=== PATIENT | male | born 1950 | race Hispanic/Latino ===

== ENCOUNTER 2021-01-21 15:06 | Inpatient (IN) | payer MEDICARE ==
[~2021-01-21] VITALS: Ht 175.3 cm; Wt 67.2 kg
[2021-01-21] MEDS ORDERED: ONDANSETRON HCL INJ 2MG/ML 2ML 2 MG/ML VIAL IV NR (15:31)
[2021-01-21] MEDS ORDERED: PANTOPRAZOLE 40 MG 10ML VIAL IV NR (15:45)
[2021-01-21] MEDS ORDERED: SODIUM CHLORIDE 0.9% 500ML 500 ML IV ONE (15:45)
[2021-01-21 16:04] LABS: BASOPHILS % 0.3 % (0.0-1.0); EOSINOPHILS # (AUTO) 0.1 (0.0-0.4); HEMATOCRIT 42.3 % (38.2-49.6); HEMOGLOBIN 14.7 g/dL (14.0-18.0); LYMPHOCYTES # (AUTO) 1.2 (1.0-3.2); LYMPHOCYTES % 20.1 % (18.0-39.1); MEAN CORPUSCULAR HEMOGLOBIN 31.1 pg (28-32); MEAN CORPUSCULAR HGB CONC 34.8 g/dL (31-35); MEAN CORPUSCULAR VOLUME 89.6 fL (81-99); MONOCYTES # (AUTO) 0.5 (0.2-0.8); MONOCYTES % 8.6 % (4.4-11.3); NEUTROPHILS # (AUTO) 4.2 (2.1-6.9); NEUTROPHILS % 69.7 % (38.7-80.0); PLATELET COUNT 183 x10e3/uL (140-360); RED BLOOD COUNT 4.72 x10e6/uL (4.3-5.7); RED CELL DISTRIBUTION WIDTH 12.4 % (11.7-14.4)
[2021-01-21 16:12] LABS: INR 0.97; PROTHROMBIN TIME 13.5 seconds (11.9-14.5)
[2021-01-21 16:13] LABS: PARTIAL THROMBOPLASTIN TIME 35.8 seconds (23.8-35.5)
[2021-01-21 16:25] LABS: ALANINE AMINOTRANSFERASE 25 IU/L (0-55); ALBUMIN 4.1 g/dL (3.5-5.0); ALBUMIN/GLOBULIN RATIO 1.2 (0.8-2.0); ALKALINE PHOSPHATASE 56 IU/L (40-150); ANION GAP 16.2 mmol/L (8-16); BLOOD UREA NITROGEN 15 mg/dL (7-26); BUN/CREATININE RATIO 15 (6-25); CALCIUM 9.2 mg/dL (8.4-10.2); CARBON DIOXIDE 26 mmol/L (22-29); CHLORIDE 100 mmol/L (98-107); CREATINE KINASE 25 IU/L (30-200); CREATININE, SERUM 1.02 mg/dL (0.72-1.25); EST GLOMERULAR FILTRATION RATE > 60 ML/MIN (60-); GLUCOSE 144 mg/dL (74-118); LIPASE 31 U/L (8-78); MAGNESIUM 1.5 MG/DL (1.3-2.1); POTASSIUM 3.2 mmol/L (3.5-5.1); SODIUM 139 mmol/L (136-145)
[2021-01-21] MEDS ORDERED: POTASSIUM CHLORIDE 20 MEQ TAB CR PO NR (17:15)
[2021-01-21 17:18] LABS: B-TYPE NATRIURETIC PEPTIDE2 40.2 pg/mL (0-100)
[2021-01-21 18:26] LABS: CLARITY,URINE CLEAR (CLEAR); COLOR,URINE YELLOW (YELLOW)
[2021-01-21 18:27] LABS: BACTERIA,URINE FEW /HPF; EPITHELIAL CELLS,URINE RARE /LPF; KETONES,URINE TRACE (NEGATIVE); LEUKOCYTE ESTERASE ,URINE NEGATIVE (NEGATIVE); NITRITE,URINE NEGATIVE (NEGATIVE); PROTEIN,URINE DIPSTICK NEGATIVE (NEGATIVE); RBC,URINE 0-5 /HPF (0-5); URINE UROBILINOGEN 0.2 mg/dL (0.2 - 1); WBC,URINE (MAN) 0-5 /HPF (0-5)
[2021-01-21] MEDS ORDERED: KCL 20MEQ/.9 SOD CHL 1,000 ML IV ONE ×2 (18:45→23:05)
[2021-01-21] MEDS ORDERED: ONDANSETRON HCL INJ 2MG/ML 2ML 2 MG/ML VIAL IV PRN (18:45)
[2021-01-21] MEDS ORDERED: IOPAMIDOL 370 MG/ML 200 ML INFUS..BTL INJ ONE (19:06)
[2021-01-21] MEDS ORDERED: SODIUM CHLORIDE 0.9% 100 ML ONE (19:06)
[2021-01-21] MEDS: ATORVASTATIN 20 MG TAB PO SCH (22:50)
[2021-01-21] MEDS: ASPIRIN 81 MG ENTERIC COATED PO SCH (22:50)
[2021-01-21 23:00] VITALS: BP 137/59
[2021-01-21] MEDS: METOPROLOL TARTRATE 25 MG TAB PO SCH (23:05)
[2021-01-21 23:11] VITALS: BP 136/59
[2021-01-21 23:25] VITALS: BP 136/59
[2021-01-22] VITALS (8 sets, daily range): BP systolic 97–142; BP diastolic 73–103
[2021-01-22 06:07] LABS: BASOPHILS % 0.2 % (0.0-1.0); EOSINOPHILS % 0.7 % (0.0-6.0); HEMATOCRIT 38.4 % (38.2-49.6); HEMOGLOBIN 13.4 g/dL (14.0-18.0); LYMPHOCYTES # (AUTO) 1.2 (1.0-3.2); LYMPHOCYTES % 19.9 % (18.0-39.1); MEAN CORPUSCULAR HEMOGLOBIN 31.2 pg (28-32); MEAN CORPUSCULAR HGB CONC 34.9 g/dL (31-35); MEAN CORPUSCULAR VOLUME 89.5 fL (81-99); MONOCYTES # (AUTO) 0.6 (0.2-0.8); MONOCYTES % 10.2 % (4.4-11.3); NEUTROPHILS # (AUTO) 4.2 (2.1-6.9); NEUTROPHILS % 68.7 % (38.7-80.0); PLATELET COUNT 155 x10e3/uL (140-360); RED BLOOD COUNT 4.29 x10e6/uL (4.3-5.7); RED CELL DISTRIBUTION WIDTH 12.7 % (11.7-14.4)
[2021-01-22 06:23] LABS: ALANINE AMINOTRANSFERASE 21 IU/L (0-55); ALBUMIN 3.9 g/dL (3.5-5.0); ALBUMIN/GLOBULIN RATIO 1.3 (0.8-2.0); ALKALINE PHOSPHATASE 47 IU/L (40-150); ANION GAP 14.7 mmol/L (8-16); BLOOD UREA NITROGEN 13 mg/dL (7-26); BUN/CREATININE RATIO 16 (6-25); CALCIUM 8.9 mg/dL (8.4-10.2); CARBON DIOXIDE 25 mmol/L (22-29); CHLORIDE 103 mmol/L (98-107); CREATININE, SERUM 0.83 mg/dL (0.72-1.25); EST GLOMERULAR FILTRATION RATE > 60 ML/MIN (60-); GLUCOSE 98 mg/dL (74-118); POTASSIUM 3.7 mmol/L (3.5-5.1); SODIUM 139 mmol/L (136-145)
[2021-01-22 06:48] LABS: CREATINE KINASE MB 0.8 ng/mL (0-5.0)
[2021-01-22] MEDS: METOPROLOL TARTRATE 25 MG TAB PO SCH ×2 (09:00→20:35)
[2021-01-22] MEDS: ASPIRIN 81 MG ENTERIC COATED PO SCH (09:00)
[2021-01-22] MEDS ORDERED: OMEPRAZOLE40 MG PO (10:37)
[2021-01-22] MEDS ORDERED: LISINOPRIL2.5 MG PO (10:37)
[2021-01-22] MEDS ORDERED: FUROSEMIDE40 MG PO (10:37)
[2021-01-22] MEDS ORDERED: AMIODARONE HCL100 MG PO (10:37)
[2021-01-22] MEDS ORDERED: LATANOPROST2.5 ML OP (10:37)
[2021-01-22] MEDS ORDERED: ONDANSETRON ODT8 MG PO (10:37)
[2021-01-22] MEDS ORDERED: CEPHALEXIN500 MG PO (10:37)
[2021-01-22] MEDS ORDERED: METRONIDAZOLE500 MG PO (10:37)
[2021-01-22] MEDS ORDERED: CARVEDILOL3.125 MG PO (10:37)
[2021-01-22] MEDS: DEXTROSE 5%/0.45% SOD CHL 1,000 ML IV SCH (11:26)
[2021-01-22 14:59] LABS: CREATINE KINASE MB 1.3 ng/mL (0-5.0)
[2021-01-22] MEDS ORDERED: IOPAMIDOL 370 MG/ML 200 ML INFUS..BTL INJ ONE (17:50)
[2021-01-22] MEDS ORDERED: SODIUM CHLORIDE 0.9% 50ML 50 ML ONE (17:50)
[2021-01-22] MEDS: ATORVASTATIN 20 MG TAB PO SCH (20:35)
[2021-01-23] VITALS (9 sets, daily range): BP systolic 129–148; BP diastolic 67–99
[2021-01-23] MEDS: DEXTROSE 5%/0.45% SOD CHL 1,000 ML IV SCH ×2 (03:40→20:25)
[2021-01-23] MEDS: ASPIRIN 81 MG ENTERIC COATED PO SCH (09:00)
[2021-01-23] MEDS: METOPROLOL TARTRATE 25 MG TAB PO SCH ×2 (09:00→20:25)
[2021-01-23] MEDS: ATORVASTATIN 20 MG TAB PO SCH (20:25)
[2021-01-24] VITALS (7 sets, daily range): BP systolic 112–166; BP diastolic 57–84
[2021-01-24] MEDS: ASPIRIN 81 MG ENTERIC COATED PO SCH (09:30)
[2021-01-24] MEDS: METOPROLOL TARTRATE 25 MG TAB PO SCH ×2 (12:00→19:59)
[2021-01-24] MEDS: MEGESTROL ACETATE 40 MG TAB PO SCH (12:30)
[2021-01-24] MEDS: DEXTROSE 5%/0.45% SOD CHL 1,000 ML IV SCH (14:59)
[2021-01-24] MEDS: ATORVASTATIN 20 MG TAB PO SCH (19:59)
[2021-01-25 00:28] VITALS: BP 138/80
[2021-01-25 05:53] VITALS: BP 130/82
[2021-01-25] MEDS: DEXTROSE 5%/0.45% SOD CHL 1,000 ML IV SCH (07:10)
[2021-01-25 08:28] VITALS: BP 130/81
[2021-01-25] MEDS: ASPIRIN 81 MG ENTERIC COATED PO SCH (09:00)
[2021-01-25] MEDS: MEGESTROL ACETATE 40 MG TAB PO SCH (09:00)
[2021-01-25] MEDS: METOPROLOL TARTRATE 25 MG TAB PO SCH (09:00)
[2021-01-25 10:05] VITALS: BP 130/81
[2021-01-25 12:13] VITALS: BP 122/93
== END 2021-01-25 14:49 | disposition home or self-care (01) | DRG 55 ==
LOC: ER 15:29 → ERHOLD 18:48 → MED/SURG3 22:13
PROVIDERS: ADMIT Internal Medicine; ATTEND Internal Medicine
DX: C71.9 Malignant neoplasm of brain, unspecified (principal); E44.0 Moderate protein-calorie malnutrition; C78.6 Secondary malignant neoplasm of retroperitoneum and peritoneum; I42.9 Cardiomyopathy, unspecified; R11.2 Nausea with vomiting, unspecified; Z87.891 Personal history of nicotine dependence; I67.1 Cerebral aneurysm, nonruptured; R13.10 Dysphagia, unspecified; K86.9 Disease of pancreas, unspecified; E87.6 Hypokalemia; Z20.822 Contact with and (suspected) exposure to COVID-19; Z95.810 Presence of automatic (implantable) cardiac defibrillator; R41.3 Other amnesia; H54.3 Unqualified visual loss, both eyes; Z74.01 Bed confinement status; Z51.5 Encounter for palliative care
CPT/HCPCS: 36415; 70450; 70496; 71045; 74177; 80053; 80061; 81001; 82140; 82550; 82553; 83519; 83690; 83735; 83874; 83880; 84484; 85025; 85610; 85730; 86255; 87086; 93005; 93880; 97139; 99284; J2405; J7040; J7050; Q9967; U0002